=== PATIENT | male | born 1980 | race Two or more races ===

== ENCOUNTER → 2021-12-12 15:21 | Outpatient (BNVA) | payer OTHER, SELFPAY | PROVIDERS: PCP Internal Medicine; Visit Provider Nurse Practitioner Family ==

== ENCOUNTER → 2023-03-20 15:03 | Outpatient (BNVA) | payer OTHER, SELFPAY | PROVIDERS: PCP Internal Medicine; Visit Provider Nurse Practitioner Family ==

== ENCOUNTER 2024-03-22 15:47 | Outpatient (AMB) | payer BC, MEDICAID, SELFPAY ==
--- NOTE | 2024-03-22 15:47 | A.OFFVIS_ITS ---
Vital Signs 03/22/24 15:50 03/22/24 15:57 Height 5 ft 3 in Weight 143 lb 2 oz 143 lb 2 oz BMI 25.4 BP 115/62 Blood Pressure Location Lt brachial Position Sitting Pulse 82 Pulse Source Pulse Oximeter Pulse Oximetry (%) 95 Oxygen Delivery Method Room Air Intake Visit Reasons: f/u -LVM w/ address Intake Note: Patient presents for f/u. Right calf still cramping but not often. Numbness on right foot when standing for to long. Feels lower back pain when bending over sometimes. Allergies Seasonal Allergies Allergy (Unknown, Verified 03/22/24 15:54) Unknown HPI Comments Details: 44-yr-old male presents for f/u visit. Pt denies any significant interval medical history changes. Pt reports tremor is better. He has had just 1 recent RLE calf cramp- calf was sore for a few days, and caused some right medial foot soreness a swell Pt reports Right plantar foot is still feels numb, but can still feel the ground when walking. Can still have low back non-radiating pain which lasts 1-2 days, if more cative, such as working in his garden for hours. Uses his waist support prn. Continues to do stretching nightly. Doing acupuncture weekly. Magnesium caused muscle cramps. [facility] Surgical History History of surgery on arm Social History Alcohol intake: current Patient Tobacco Use Status: Never used Tobacco Review of Systems Const All systems reviewed & are unremarkable except as noted in HPI and below Physical Exam Vital Signs: Last Vital Signs Pulse 82 03/22/24 15:57 BP 115/62 03/22/24 15:57 Pulse Ox 95 03/22/24 15:57 Oxygen Delivery Method Room Air 03/22/24 15:57 BMI result Body Mass Index 25.4 Const General: cooperative and no acute distress Resp Effort & Inspection: normal respiratory effort and able to speak in complete sentences Neuro Other: General: A&O x's 3 Expression: Intact Voice: Intact Tremor: No visible tremor Tone: Mild RUE tightness Dyskinesia: None FFM: Intact Foot taps: Intact MS: 5/5 throughout. Gait: Good stride, steady gait Psych: Pleasant affect Deep tendon reflexes (DTR's): Right patellar reflex intensity grade: 2+ and Left patellar reflex intensity grade: 2+ Psych Appearance: grossly normal Mental Status: mental status grossly normal Affect: normal affect Assessment & Plan Assessment & Plan (1) Tremor: Comment: RUE Code(s): R25.1 - Tremor, unspecified Category: Medical (2) Leg cramps: Code(s): R25.2 - Cramp and spasm Category: Medical (3) Pain of right lower extremity: Comment: w improved w/ residual intermittent RLE numbness. EMG- mild RLE chronic L4-5 radiculopathy. Code(s): M79.604 - Pain in right leg Category: Medical Plan May trial OTC Magnesium cream, salon Pas, [place] balm- prn for leg cramps Continue stretching, accupuncture. Pt may benefit from trying yoga. Monitor tremor Monitor low back pain, right fot numbness. f/u in 1 yr or sooner prn Coding Level of Care Code Est Pt Level 3 (05111) Diagnoses Tremor R25.1 Leg cramps R25.2 Pain of right lower extremity M79.604
[2024-03-22 15:57] VITALS: BP 115/62; PULSE 82; O2SAT 95; BMI 25.4
== END 2024-03-22 16:25 | disposition home or self-care (01) ==
LOC: HO.HSMS 15:47
PROVIDERS: PCP Internal Medicine; Visit Provider Nurse Practitioner Family
DX: R25.1 Tremor, unspecified (principal); R25.2 Cramp and spasm; M79.604 Pain in right leg
CPT/HCPCS: 99213

== ENCOUNTER → 2024-03-22 15:47 | Outpatient (BNVA) | payer BC, MEDICAID, SELFPAY | PROVIDERS: PCP Internal Medicine; Visit Provider Nurse Practitioner Family ==

== ENCOUNTER 2025-03-23 15:26 | Outpatient (AMB) | payer BC, MEDICAID, SELFPAY ==
--- NOTE | 2025-03-23 15:44 | A.OFFVIS_ITS ---
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 Pt denies any significant interval medical history changes. Pt reports tremor continues to be better. He has not had any RLE calf cramps, until last night. Calf was sore for a few hours. He tried massage and topical spray, which was helpful. He is quite nervous about the return of the leg cramps today he states he does not recall taking the magnesium but rather it was a gabapentin that he took once and he had leg cramps so we did not take it again Pt reports Right plantar foot is still feels numb- intensity fluctuates, but can still feel the ground when walking. He denies his shoes wearing out unevenly Can still have low back non-radiating pain which lasts 1-2 days, if more active, such as working in his yard or house- uses an east balm or spray as needed and the pain resolves in a few days. He does not have the back pain at work. Continues to do stretching nightly. Otherwise, he does not do much exercise states he does not have enough time, as he has 2 children, 5 and 7 years old. Has not been doing acupuncture recently. [facility] Surgical History History of surgery on arm Social History Alcohol intake: current Patient Tobacco Use Status: Never used Tobacco Physical Exam Vital Signs: Last Vital Signs Pulse 95 03/23/25 15:45 BP 110/78 03/23/25 15:45 Pulse Ox 97 03/23/25 15:45 Oxygen Delivery Method Room Air 03/23/25 15:45 Const General: cooperative and no acute distress Resp Effort & Inspection: normal respiratory effort and able to speak in complete sentences Neuro Other: General: A&O x's 3 Expression: Intact Voice: Intact Tremor: No visible tremor Tone: Mild RUE tightness Dyskinesia: None FFM: Intact Foot taps: Intact Posture: Slight stooping shoulders, mild forward hip posture MS: 5/5 throughout. Gait: Good stride, steady gait Psych: Pleasant affect Deep tendon reflexes (DTR's): Right triceps reflex intensity grade: 2+, Left triceps reflex intensity grade: 2+, Rt Biceps (C5, C6): 2+, Left biceps reflex intensity grade: 2+, Right brachioradialis reflex intensity grade: 2+, Left brachioradialis reflex intensity grade: 2+, Right patellar reflex intensity grade: 2+ and Left patellar reflex intensity grade: 2+ Psych Appearance: grossly normal Mental Status: mental status grossly normal Affect: normal affect Assessment & Plan Assessment & Plan (1) Tremor: Comment: RUE- improved Code(s): R25.1 - Tremor, unspecified Category: Medical (2) Leg cramps: Code(s): R25.2 - Cramp and spasm Category: Medical (3) Pain of right lower extremity: Comment: w improved w/ residual intermittent RLE numbness. EMG- mild RLE chronic L4-5 radiculopathy. Code(s): M79.604 - Pain in right leg Category: Medical (4) Low back pain: Code(s): M54.50 - Low back pain, unspecified Category: Medical Plan Trial magnesium glycinate 400 mg daily at bedtime- to prevent leg cramps. Trial cyclobenzaprine 5 mg tab, 1 2 tabs daily at bedtime prn breakthrough muscle cramps, low back spasm. May use OTC topical analgesics, such as magnesium cream, salon Pas, Rew balm- prn for leg cramps Continue stretching. May continue acupuncture as needed Encourage patient to increase exercise, even simple body weight exercises at home to improve posture and core strength Monitor tremor Monitor low back pain, right foot numbness. f/u in 1 yr or sooner prn Medications: New cyclobenzaprine 5 - 10 mg (1 - 2 x 5 mg) PO BEDTIME 30 days PRN 30 tabs 1RF muscle cramp/spasm magnesium glycinate for muscle cramps 400 mg (4 x 100 mg magnesium) PO BEDTIME 30 days 120 caps 6RF magnesium glycinate for muscle cramps 400 mg (4 x 100 mg magnesium) PO BEDTIME 30 days 120 caps 6RF Coding Level of Care Code Est Pt Level 4 (25543) Diagnoses Tremor R25.1 Leg cramps R25.2 Pain of right lower extremity M79.604 Low back pain M54.50
[2025-03-23 15:45] VITALS: BP 110/78; PULSE 95; O2SAT 97
--- OUTSIDE RECORDS SUMMARY | 2025-03-23 16:01 | XMS_ITS | Clinical Summary ---
Author Organization [facility] Address [address] [place] [address] Care Team Providers Care Linoleum Tile Floor Layer Name Role Phone Elpidio Maurer MD Primary Care Provider [phone] Source Comments PLEASE NOTE, if this patient is a minor, it may be UNLAWFUL to discuss sensitive information that is contained in these records (such as FAMILY PLANNING, MENTAL HEALTH or SUBSTANCE ABUSE) with the minor patient's parent or other person without the patient's specific authorization.[facility] Allergies No known active allergies Medications nortriptyline (PAMELOR) 25 mg capsuleIndicatio ns:Insomnia, unspecified type TAKE 1 CAPSULE BY MOUTH EVERYDAY AT BEDTIME 30 Cap 5 9 Active acetaminophen (TYLENOL) 500 mg tabletIndication s:Viral URI Take 1 Tab by mouth every 6 (six) hours as needed for pain or fever 60 Tab 1 0 Active hydrocortisone 2.5 % ointmentIndicati ons:Rash Apply topically 2 (two) times daily 28.35 g 1 3 Active flunisolide 25 mcg (0.025 %) spryIndications: Seasonal allergies Place 1 [place] into the nostril(s) once daily 25 mL 2 4 Active loratadine (CLARITIN) 10 mg tabletIndication s:Seasonal allergies Take 1 Tablet by mouth once daily as needed for allergies 60 Tablet 1 4 Active metFORMIN (GLUCOPHAGE) 500 mg tabletIndication s:Prediabetes Take 1 Tablet by mouth once daily with breakfast 90 Tablet 1 4 Active cetirizine (ZYRTEC) 10 mg tabletIndication s:Seasonal allergies Take 1 Tablet by mouth once daily 90 Tablet 5 Active Active Problems Problem Noted Date Diagnosed Date History of colonoscopy with polypectomy 05/09/20 Overview (05/09/2024): Done [facility] 04/29/25 Dr Juan Caceres 8 mm polyp in proximal sigmoid colon removed Rpt Colonoscopy in 5 years for surveillance Prediabetes 01/07/2024 Seasonal allergies 03/27/2022 Tingling of right upper extremity 11/17/2018 Overview (11/17/2018): 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 Recently seen by Ortho 06/22/2018. They ordered EMG of Right upper extremity as he has tingling in arm. EMG was normal. Referred to Neurology Insomnia 02/09/2014 Hypertriglyceridemia 02/09/2014 Resolved Problems Problem Noted Date Diagnosed Date Resolved Date Rhinitis 01/04/2015 07/05/2021 Encounters Date Type Department Care Team Description 02/02/2025 4:20 PM EDT Office Visit [address] [phone] Elpidio Maurer MD Prediabetes (Primary Dx); Seasonal allergies; Hypertriglyceridemia from Last 3 Months Immunizations Immunization Administration Dates Next Due Flu, Cell Culture based, Pre servative Free, 6m+, Flucelvax 08/12/2022 Flu, Preservative Free 08/07/2023,2018,11/17/2018,2016,10/01/2016 Hep B,adult,adjuvanted (HEPLISAV) 11/26/2022,08/2022 INFLUENZA, SEASONAL, INJECTABLE 08/24/2015,10/04 TDAP 03/11/2017,08/24/2015 Family History Medical History Relation Name Comments Diabetes Father Hypertension Father Hypertension Mother Relation Name Status Comments Brother Alive Father Alive Mother Alive Sister Alive Social History Tobacco Use Types Packs/Day Years Used Date Smoking Tobacco: Never Cigarettes Qu it: 06/01/2016 Passive Smoke Exposure: Never Smokeless Tobacco: Never Tobacco Cessation:Counseling Given: Not Answered Alcohol Use Standard Drinks/Week Comments Yes 0 (1 standard drink = 0.6 oz pur e alcohol) only weekends Social Connections Answer Date Recorded Connectedness 0 03/27/2022 Financial Resource Strain Answer Date R ecorded Financial Resource Strain 0 2021 Stress Answer Date Recorded Stress 0 03/27/2022 Physical Activity Answer Date Recorded Physical Activity 0 07/07/2019 Food Insecurity Answer Date Recorded Food 0 03/27/2022 Transportation Needs Answer Date Record ed Transportation 0 03/27/2022 Housing Stability Answer Date Recorded Housing 0 03/27/2022 Safety and Environment Answer Date Amol rded Safety 0 12/26/2022 Utilities Answer Date Recorded Utilities 0 03/27/2022 Employment Answer Date Recorded Stress 0 03/27/2022 Sex and Gender Information Value Date Recorded Sex Assigned at Male 09/10/2018 6:52 AM PDT Legal Sex Male 11:36 AM PDT Gender Identity Male 09/10/2018 6:52 AM PDT Sexual Orientation Straight 09/10/2018 6: 52 AM PDT Last Filed Vital Signs Vital Sign Reading Time Taken Comments Blood Pressure 136/76 02/02/2025 3:54 PM EDT Pulse 100 02/02/2025 3:54 PM EDT Temperature 36.5 ??C (97.7 ??F) 02/02/2025 3:54 PM ED T Respiratory Rate 16 02/02/2025 3:54 PM EDT Oxygen Saturation 97% 02/02/2025 3:54 PM EDT Inhaled Oxygen Concentration - - Weight 61.2 kg (135 lb) 02/02/2025 3:54 PM EDT Height 160 cm (5' 3 ) 02/02/2025 3:54 PM EDT Body Mass Index 23.91 02/02/2025 3:54 PM EDT Plan of Treatment Health Maintenance Due Date Last Done Comments CT Colonography 2024 FIT/gFOBT 2024 Fecal DNA 2024 Flexible Sigmoidoscopy 2024 Annual Preventive Care Visit 01/06/2025, 03/27/2022, 05/18/2019, Additional history exists Anxiety Screening 02/02/2026 02/02/2025 Diabetes Screening 02/02/2026 02/02/2025, 0 01/06/2024, 01/06/2024, Additional history exists Hypertension Screening (#1) 02/02/2026 Tobacco Screening 02/02/2026 02/02/2025 Imm-DTaP/Tdap/Td (3 - Td or Tdap) 03/11/2027 017, 08/24/2015 Lipid Screening 01/06/2029 01/06/2024, 051 12/2021, 05/18/2019, Additional history exists Colonoscopy 04/29/2029 04/29/2024, 04/29/2024 Colorectal Cancer Screening 04/29/2029 [id number] Discontinued 10/04/2021, 05/0 11/2020, 02/16/2021 HIV Screening Completed 03/27/2022 Hepatitis C Screening Completed 03/27/2022 Imm-Hepatitis B Completed 11/26/2022, 09/25/2022 Imm-Influenza Completed 07/25/2024, 07/18, 08/12/2022, Additional history exists Alcohol and Drug Screen Completed 02/03/20 25, 01/06/2024, 12/26/2022, Additional history exists Depression Annual Screen Completed 025, 01/06/2024, 09/10/2018 Procedures Procedure Name Priority Date/Time Associated Diagnosis Comments HEMOGLOBIN GLYCOSYLATED A1C Routine 02/02/2025 4:07 PM EDT Prediabetes REFERRAL FOR COLONOSCOPY Routine 04/29/2024 3:00 AM EDT Screen for colon cancer Health care maintenance LIPID PANEL Routine 01/06/2024 11:10 AM EST Routine general medical examination at a health care facility Hypertriglyceridemi a HIV 1/2 AG & AB W/RFLX (4TH GEN) Routine 03/27/2022 3:37 PM EDT Routine general medical examination at a health care facility Health care maintenance HEPATITIS C AB W/RFLX HCV RNA, QT, RT PCR Routine 03/27/2022 3:37 PM EDT Routine general medical examination at a health care facility Health care maintenance from Last 3 Months or Most Recently Relevant to Health Maintenance Results * (ABNORMAL) HEMOGLOBIN GLYCOSYLATED A1C (02/02/2025 4:07 PM EDT) HEMOGLOBIN A1C 5.8(H) <5.7 % of total Hgb [facility] Comment: For someone without known diabetes, a hemoglobin A1c value between 5.7% and 6.4% is consistent with prediabetes and should be confirmed with a follow-up test. For someone with known diabetes, a value <7% indicates that their diabetes is well controlled. A1c targets should be individualized based on duration of diabetes, age, comorbid conditions, and other considerations. This assay result is consistent with an increased risk of diabetes. Currently, no consensus exists regarding use of hemoglobin A1c for diagnosis of diabetes for children. Blood Blood / Unknown 02/02/2025 4 :07 PM EDT 02/02/2025 4:08 PM EDT Narrative [facility] - 02/03/2025 9:47 AM EDT FASTING:NO Elpidio Maurer MD LAB - BLOOD DRAW Final Result [facility] [address] [place] [id number], [facility] [address] [id number] * REFERRAL FOR COLONOSCOPY (04/29/2024 3:00 AM EDT) 04/29/2024 3:00 AM EDT Elpidio Maurer MD REFERRAL Edited Result - Final * (ABNORMAL) LIPID PANEL (01/06/2024 11:10 AM EST) CHOLESTEROL, TOTAL 178 <200 mg/dL [facility] HDL CHOLESTEROL 50 > OR = 40 mg/dL [facility] TRIGLYCERIDES 150(H) <150 mg/dL [facility] LDL-CHOLESTEROL 103(H) 99 mg/dL (calc) [facility] Comment: Reference range: <100 Desirable range <100 mg/dL for primary prevention; ?? <70 mg/dL for patients with CHD or diabetic patients with > or = 2 CHD risk factors. LDL-C is now calculated using the Maxime calculation, which is a validated novel method providing better accuracy than the Friedewald equation in the estimation of LDL-C. Nabil MINOR et al. GABBIE. 2013;310(19): 9608-8567 (http://Wink.Practice Fusion/faq/SCZ401) CHOL/HDLC RATIO 3.6 <5.0 (calc) [facility] NON-HDL CHOLESTEROL 128 <130 mg/dL (calc) [facility] Comment: For patients with diabetes plus 1 major ASCVD risk factor, treating to a non-HDL-C goal of <100 mg/dL (LDL-C of <70 mg/dL) is considered a therapeutic option. Blood Blood / Unknown 01/06/2024 1 1:10 AM EST 01/06/2024 11:10 AM EST Narrative [facility] - 01/07/2024 7:56 AM EST FASTING:YES Elpidio Maurer MD LAB - BLOOD DRAW Final Result [facility] [address] [address], [facility] [address] [place] [address] * HEPATITIS C AB W/RFLX HCV RNA, QT, RT PCR (03/27/2022 3:37 PM EDT) HEPATITIS C ANTIBODY NON-REACT TEE NON-REACT TEE [facility] SIGNAL TO CUT-OFF 0.01 <1.00 [facility] Comment: HCV antibody was non-reactive. There is no laboratory evidence of HCV infection. In most cases, no further action is required. However, if recent HCV exposure is suspected, a test for HCV RNA (test code 96080) is suggested. For additional information please refer to http://education.Whittl/faq/QEH61j5 (This link is being provided for informational/ educational purposes only.) Blood Blood / Unknown 03/27/2022 3 :37 PM EDT 03/27/2022 3:37 PM EDT Narrative [facility] - 03/28/2022 1:56 PM EDT FASTING:YES lEpidio Maurer MD LAB - BLOOD DRAW Final Result [facility] [address] [address], [facility] [address] [address] * HIV 1/2 AG & AB W/RFLX (4TH GEN) (03/27/2022 3:37 PM EDT) [facility] Signature HIV AG/AB, 4TH GEN NON-REAC TIVE NON-REAC TIVE [facility] Comment: HIV-1 antigen and HIV-1/HIV-2 antibodies were not detected. There is no laboratory evidence of HIV infection. PLEASE NOTE: This information has been disclosed to you from records whose confidentiality may be protected by state law. ??If your state requires such protection, then the state law prohibits you from making any further disclosure of the information without the specific written consent of the person to whom it pertains, or as otherwise permitted by law. A general authorization for the release of medical or other information is NOT sufficient for this purpose. ?? For additional information please refer to http://education.Whittl/faq/GAS271 (This link is being provided for informational/ educational purposes only.) The performance of this assay has not been clinically validated in patients less than 2 years old. Blood Blood / Unknown 03/27/2022 3 :37 PM EDT 03/27/2022 3:37 PM EDT Narrative [facility] - 03/28/2022 1:56 PM EDT FASTING:YES us Elpidio Maurer MD LAB - BLOOD DRAW Final Result [facility] [address] [address], [place] [facility] [address] [address] from Last 3 Months or Most Recently Relevant to Health Maintenance [place] DENT[place] PERSON [facility] DENTAL MEDICAID [facility] Member Subscriber Plan / Payer ( fective 2023-Present) Name:Carlos Enrique Melvin Relation to Subscriber:Self Name:Carlos Enrique Melvin Payer ID:[id number] Type:Indemnity Address: [address] [place] [address] Care Teams Linoleum Tile Floor Layer Relationship Specialty Start Date End Date Elpidio Maurer MD [address] [place] [address] PCP - General Internal Medicine 07/23/18
--- OUTSIDE RECORDS SUMMARY | 2025-03-23 16:01 | XMS_ITS | Clinical Summary ---
Author Organization [facility] it[facility] Address [address] [place] [address] Care Team Providers Care Research Professor Of Biostatistics Name Role Phone Unavailable Primary Care Provider Unavailabl e Social History Tobacco Use Types Packs/Day Years Used Date Smoking Tobacco: Never Assessed Sex and Gender Information Value Date Recorded Sex Assigned at Not on file Legal Sex Male 8:39 AM EST Gender Identity Not on file Sexual Orientation Not on file Plan of Treatment Health Maintenance Due Date Last Done Comments DTaP,Tdap,and Td Vaccines (1 - Tdap) 1998 Hepatitis B Vaccines (1 of 3 - 19+ 3-dose series) 1998 Cholesterol Screening (Lipid Panel) 10/19/2022 Colorectal Cancer Screening: Colonoscopy 10/19/2022 Depression Screening 10/19/2022 HIV Screening 10/19/2022 Hepatitis C Screening 10/19/2022 Social Influencers of Health Screening 10/19/2022 COVID-19 Vaccine (2023-2 5 season) 2024 Influenza Vaccine (Season Ended) 2025 HIB Vaccines Aged Out No longer eligi ble based on patient's age to complete this topic HPV Vaccines Aged Out No longer eligi ble based on patient's age to complete this topic Hepatitis A Vaccines Aged Out No long er eligible based on patient's age to complete this topic IPV Vaccines Aged Out No longer eligi ble based on patient's age to complete this topic MMR Vaccines Aged Out No longer eligi ble based on patient's age to complete this topic Meningococcal ACWY Vaccine Aged Out N o longer eligible based on patient's age to complete this topic Meningococcal B Vaccine Aged Out No l onger eligible based on patient's age to complete this topic Pneumococcal Vaccine: Pediat rics (0 to 5 Years) and At-Risk Patients (6 to 64 Years) Aged Out No longer eligible b ased on patient's age to complete this topic RSV Immunization Patients Un randy 20 months Aged Out No longer eligible b ased on patient's age to complete this topic Varicella Vaccines Aged Out No longer eligible based on patient's age to complete this topic
== END 2025-03-23 16:17 | disposition home or self-care (01) ==
LOC: HO.HSMS 15:27
PROVIDERS: PCP Internal Medicine; Visit Provider Nurse Practitioner Family
DX: R25.1 Tremor, unspecified (principal); R25.2 Cramp and spasm; M79.604 Pain in right leg; M54.50 Low back pain, unspecified
CPT/HCPCS: 99214

== ENCOUNTER → 2025-03-23 15:26 | Outpatient (BNVA) | payer BC, MEDICAID, SELFPAY | PROVIDERS: PCP Internal Medicine; Visit Provider Nurse Practitioner Family ==